=== PATIENT | female | born 1980 | race Caucasian/White ===

== ENCOUNTER → 2017-03-09 | Outpatient (CLI) | payer MEDICAID | LOC: FIMAGING 10:18 | PROVIDERS: ATTEND Family Medicine | DX: N92.0 Excessive and frequent menstruation with regular cycle (principal); N94.5 Secondary dysmenorrhea ==

== ENCOUNTER 2018-02-26 16:12 | Emergency (ER) | payer MEDICAID ==
[2018-02-26] MEDS ORDERED: KETOROLAC 30 MG/1 ML SDV IVP ONE (16:47)
[2018-02-26] MEDS ORDERED: ONDANSETRON 4 MG/2 ML VIAL IVP ONE (16:47)
--- NOTE | 2018-02-26 16:52 | EDPHY ---
H & P Time Seen by Provider: 02/26/18 16:41 HPI/ROS: CHIEF COMPLAINT: Left flank pain HISTORY OF PRESENT ILLNESS: Patient is a 38-year-old female with a history of pyelonephritis who presents emergency department left flank pain. Pain started yesterday. It moved in the left flank to the left groin. It is moderate to severe. It is not positional. She has had nausea with no vomiting. No fevers or chills. No dysuria frequency. No hematuria. REVIEW OF SYSTEMS: My complete review of systems is negative except as mentioned in the HPI. Past Medical/Surgical History: Includes pyelonephritis Past surgical history: Includes Bilateral tubal ligation, , finger surgery, breast surgery Smoking Status: Never smoked Physical Exam: Vitals noted GENERAL: Moderate acute distress, alert. HEENT: Eyes normal to inspection, normal pharynx, no signs of dehydration. NECK: [No thyromegaly, no lymphadenopathy, supple. RESPIRATORY: Clear to auscultation bilaterally, no rales, rhonchi or wheezing. CVS: Regular rate and rhythm, no rubs, murmurs, or gallops. ABDOMEN: Soft, nontender, nondistended, no organomegaly. Benign BACK: Normal to inspection, mild left CVA tenderness. SKIN: Normal color, no rash, warm, dry. No pallor. EXTREMITIES: No pedal edema, no calf tenderness, no Homans sign or cords, no joint swelling. NEURO/PSYCH: Alert and oriented, normal mood and affect, normal motor sensory exam. Constitutional: Initial Vital Signs Temperature (C) 36.3 C 02/26/18 16:23 Heart Rate 61 02/26/18 16:23 Respiratory Rate 18 02/26/18 16:23 Blood Pressure 149/85 H 02/26/18 16:23 O2 Sat (%) 100 02/26/18 16:23 O2 Delivery Mode Room Air Allergies/Adverse Reactions: Penicillins Allergy (Verified 02/26/18 16:22) Home Medications: Medication Instructions Recorded NK [No Known Home Meds] 02/26/18 Medical Decision Making ED Course/Re-evaluation: In the emergency department I discussed possible etiologies with the patient. I answered all her questions. IV was placed. Patient was given Toradol 30 mg IV. Patient given normal saline 1 L IV for hydration. I reviewed the patient's laboratory studies. White count was normal. Chemistry panel is notable for a slightly low CO2 at 20. Anion gap is 17. Creatinine is normal. negative. UA negative. CT of the abdomen pelvis: Please refer the dictated report by Dr. Ibarra. The patient has a stone in the left kidney. There is no stone in the ureter. There is mild hydro. Patient also has a misplaced clipped from her BTL. I discussed the results with the patient. I answered all her questions. Patient is aware the clip displacement. Patient feels completely better. Abdomen is soft, nontender nondistended. Patient feels comfortable with discharge. She is given warnings prior to leaving. She will return with worsening symptoms. Differential Diagnosis: My differential includes but is not limited to pyelonephritis, urinary tract infection, kidney stone, hiatal hernia, PE, pneumonia - Data Points Laboratory Results: Laboratory Results 02/26/18 16:43 02/26/18 16:43 02/26/18 02/26/18 02/26/18 16:43 16:43 16:43 WBC 8.39 10^3/uL 10^3/uL (3.80-9.50) RBC 4.27 10^6/uL 10^6/uL (4.18-5.33) Hgb 13.8 g/dL g/dL (12.6-16.3) Hct 40.9 % % (38.0-47.0) MCV 95.8 fL fL (81.5-99.8) MCH 32.3 pg pg (27.9-34.1) MCHC 33.7 g/dL g/dL (32.4-36.7) RDW 12.5 % % (11.5-15.2) Plt Count 271 10^3/uL 10^3/uL (150-400) MPV 9.2 fL fL (8.7-11.7) Neut % (Auto) 62.6 % % (39.3-74.2) Lymph % (Auto) 31.2 % % (15.0-45.0) [place] % (Auto) 5.7 % % (4.5-13.0) Eos % (Auto) 0.1 % L % (0.6-7.6) Baso % (Auto) 0.2 % L % (0.3-1.7) Nucleat RBC Rel Count 0.0 % % (0.0-0.2) Absolute Neuts (auto) 5.24 10^3/uL 10^3/uL (1.70-6.50) Absolute Lymphs (auto) 2.62 10^3/uL 10^3/uL (1.00-3.00) Absolute Monos (auto) 0.48 10^3/uL 10^3/uL (0.30-0.80) Absolute Eos (auto) 0.01 10^3/uL L 10^3/uL (0.03-0.40) Absolute Basos (auto) 0.02 10^3/uL 10^3/uL (0.02-0.10) Absolute Nucleated RBC 0.00 10^3/uL 10^3/uL (0-0.01) Immature Gran % 0.2 % % (0.0-1.1) Immature Gran # 0.02 10^3/uL 10^3/uL (0.00-0.10) Sodium 143 mEq/L mEq/L (135-145) Potassium 3.5 mEq/L mEq/L (3.5-5.2) Chloride 106 mEq/L mEq/L (97-110) Carbon Dioxide 20 mEq/l L mEq/l (22-31) Anion Gap 17 mEq/L H mEq/L (8-16) BUN 11 mg/dL mg/dL (7-23) Creatinine 0.6 mg/dL mg/dL (0.6-1.0) Estimated GFR > 60 Glucose 89 mg/dL mg/dL (70-100) Calcium 9.3 mg/dL mg/dL (8.5-10.4) Beta HCG, Qual NEGATIVE Urine Color Urine Appearance Urine pH Ur Specific [employer] Urine Protein Urine Ketones Urine Blood Urine Nitrate Urine Bilirubin Urine Urobilinogen Ur Leukocyte Esterase Urine RBC Urine WBC Ur Epithelial Cells Urine Bacteria Urine Mucus Urine Glucose Urine Test 02/26/18 02/26/18 16:20 16:20 WBC RBC Hgb Hct MCV MCH MCHC RDW Plt Count MPV Neut % (Auto) Lymph % (Auto) [place] % (Auto) Eos % (Auto) Baso % (Auto) Nucleat RBC Rel Count Absolute Neuts (auto) Absolute Lymphs (auto) Absolute Monos (auto) Absolute Eos (auto) Absolute Basos (auto) Absolute Nucleated RBC Immature Gran % Immature Gran # Sodium Potassium Chloride Carbon Dioxide Anion Gap BUN Creatinine Estimated GFR Glucose Calcium Beta HCG, Qual Urine Color YELLOW Urine Appearance CLEAR Urine pH 6.0 (5.0-7.5) Ur Specific [employer] 1.021 (1.002-1.030) Urine Protein NEGATIVE (NEGATIVE) Urine Ketones 2+ H (NEGATIVE) Urine Blood NEGATIVE (NEGATIVE) Urine Nitrate NEGATIVE (NEGATIVE) Urine Bilirubin NEGATIVE (NEGATIVE) Urine Urobilinogen NEGATIVE EU EU (0.2-1.0) Ur Leukocyte Esterase NEGATIVE (NEGATIVE) Urine RBC 1-3 /hpf /hpf (0-3) Urine WBC 1-3 /hpf /hpf (0-3) Ur Epithelial Cells TRACE /lpf /lpf (NONE-1+) Urine Bacteria TRACE /hpf H /hpf (NONE SEEN) Urine Mucus TRACE /lpf /lpf (NONE-1+) Urine Glucose NEGATIVE (NEGATIVE) Urine Test NEGATIVE Medications Given: Discontinued Medications Ketorolac Tromethamine (Toradol) 30 mg IVP EDNOW ONE Stop: 02/26/18 16:48 Last Admin: 02/26/18 16:59 Dose: 30 mg Ondansetron HCl (Zofran) 4 mg IVP EDNOW ONE Stop: 02/26/18 16:48 Last Admin: 02/26/18 16:59 Dose: 4 mg Departure - Departure Disposition: Home, Routine, Self-Care Clinical Impression: Flank pain Condition: Good Instructions: Flank Pain (ED), Kidney Stones (ED) Additional Instructions: Return with increasing pain, fever, vomiting, or any other concerns. Your CT scan showed a misplaced clip from [place] bilateral tubal ligation. This means there is potential for you to get . There is no visible stone in the ureter. He did have a kidney stone on the left. Referrals: Tessy Llanes MD [Primary Care Provider] - As per Instructions Radha Bermudez MD [Medical Doctor] - 5-7 days, call for appt.
[2018-02-26 17:07] LABS: PLATELET COUNT 271 10^3/uL (150-400)
[2018-02-26 19:22] VITALS: BP 129/71
== END 2018-02-26 19:20 | disposition home or self-care (01) ==
DX: R10.9 Unspecified abdominal pain (principal); Z98.51 Tubal ligation status
CPT/HCPCS: 96374; J1885; J2405